=== PATIENT | female | born 1960 | race Caucasian/White ===

== ENCOUNTER 2023-07-03 13:04 | Observation (INO) ==
[2023-07-03 14:42] LABS: ABS Basophils 0.1 10^3/uL (0.0-0.1); ABS Lymphocytes 2.9 10^3/uL (1.0-4.8); ABS Monocytes 0.4 10^3/uL (0.0-0.9); ABS Neutrophils 6.1 10^3/uL (1.5-7.6); ABS Nucleated RBC 0.02 10^3/ul; Eosinophil % 0.1 %; Hematocrit 46.4 % (35-45); Hemoglobin 16.3 g/dL (11.5-14.3); Lymphocyte % 30.2 %; Mean Corpuscular Hemoglobin 36.2 pg (27-33); Mean Corpuscular Hgb Conc 35.1 g/dL (31-36); Mean Corpuscular Volume 103.1 fL (80-97); Mean Platelet Volume 7.5 fL (7.5-11.2); Nucleated Red Blood Cells % 0.3 %/100WBC (0.0-0.8); Platelet Count 286 10^3/uL (150-450); Red Cell Distribution Width 14.1 % (12-17); White Blood Count 9.5 10^3/uL (3.8-11.8)
[2023-07-03 14:43] LABS: INR 1.18 (0.83-1.13)
[2023-07-03 15:08] LABS: Albumin 4.5 g/dL (3.2-5.2); Albumin/Globulin Ratio 1.2 (1-3); Calcium 9.2 mg/dL (8.6-10.3); Creatinine, Serum 0.78 mg/dL (0.51-0.95); Globulin 3.8 g/dL (2-4); Potassium 4.2 mmol/L (3.5-5.0); Total Bilirubin 1.1 mg/dL (0.2-1.0); Total Protein 8.3 g/dL (6.4-8.9); eGFR CKD-EPI 85.3 (>60)
[2023-07-03] MEDS ORDERED: Lactated Ringers 1000 ml BAG 1,000 ML IV ONE ×2 (16:36→18:44)
[2023-07-03] MEDS ORDERED: LORazepam 2 mg VIAL 1 ml IV PUSH ONE ×2 (17:32→20:03)
[2023-07-03] MEDS ORDERED: Lorazepam PYXIS KEY PRN ×2 (17:32→20:03)
[2023-07-03] MEDS ORDERED: Iohexol 350 (CONTRAST) 500 ML MDV IV ONE (17:50)
[2023-07-03 18:08] LABS: Urine Appearance Cloudy; Urine Bilirubin Negative (Negative); Urine Blood 3+ (Negative); Urine Color Yellow; Urine Glucose Negative (Negative); Urine Ketones 2+ (Negative); Urine Nitrite Negative (Negative); Urine Protein 2+(100 mg/dL) (Negative); Urine Specific Gravity 1.018 (1.002-1.030); Urine Urobilinogen Negative (Negative)
[2023-07-03 18:30] LABS: Urine Bacteria Absent (Absent); Urine Red Blood Cell 3+(>10/hpf) (Absent); Urine Squamous Epithelial Cell Present (Absent); Urine White Blood Cell Trace(0-5/hpf) (Absent)
[2023-07-03 20:10] LABS: C Reactive Protein 5.39 mg/L (<8.01)
[2023-07-03] MEDS ORDERED: Morphine 2 MG/ML SYRINGE IV PRN (21:32)
[2023-07-03] MEDS ORDERED: Enoxaparin 40 MG/0.4 ML SYR SUBCUT SCH (22:00)
[2023-07-03 22:46] LABS: Direct Bilirubin 0.4 mg/dL (0.03-0.18); Indirect Bilirubin 0.7 mg/dL (0.3-1.0); Magnesium 1.9 mg/dL (1.9-2.7)
[2023-07-03] MEDS ORDERED: Thiamine 100 MG/ML 2 ml VIAL (200 mg) IM ONE (22:55)
[2023-07-03] MEDS ORDERED: LORazepam 2 mg VIAL 1 ml IV PUSH SCH (23:00)
[2023-07-03] MEDS ORDERED: Lactated Ringers 1000 ml BAG 1,000 ML IV SCH (23:00)
[2023-07-03] MEDS: Multivitamins/Minerals TAB PO SCH (23:24)
[2023-07-04 06:06] LABS: ABS Basophils 0.1 10^3/uL (0.0-0.1); ABS Lymphocytes 2.5 10^3/uL (1.0-4.8); ABS Monocytes 0.6 10^3/uL (0.0-0.9); ABS Neutrophils 4.7 10^3/uL (1.5-7.6); Eosinophil % 0.6 %; Hematocrit 38.2 % (35-45); Hemoglobin 13.3 g/dL (11.5-14.3); Lymphocyte % 31.9 %; Mean Corpuscular Hemoglobin 35.9 pg (27-33); Mean Corpuscular Hgb Conc 34.7 g/dL (31-36); Mean Corpuscular Volume 103.6 fL (80-97); Mean Platelet Volume 7.4 fL (7.5-11.2); Nucleated Red Blood Cells % 0.1 %/100WBC (0.0-0.8); Platelet Count 204 10^3/uL (150-450); Red Blood Count 3.69 10^6/uL (3.63-4.92); Red Cell Distribution Width 14.2 % (12-17); White Blood Count 7.9 10^3/uL (3.8-11.8)
[2023-07-04 06:27] LABS: Calcium 8.6 mg/dL (8.6-10.3); Creatinine, Serum 0.62 mg/dL (0.51-0.95); Magnesium 1.8 mg/dL (1.9-2.7); Potassium 3.5 mmol/L (3.5-5.0)
[2023-07-04] MEDS: Multivitamins/Minerals TAB PO SCH (08:09)
[2023-07-04] MEDS ORDERED: Magnesium Sulfate 2 gm BAG 2 GM/50 ML BAG IVPB ONE (09:54)
[2023-07-04 14:54] VITALS: BP 165/96
== END 2023-07-04 16:30 | disposition home or self-care (01) ==
LOC: EDHOLD 13:04 → ED 13:04 → SUATTDRO 21:29 → SSU 07-04 00:33
PROVIDERS: ADMIT Internal Medicine; ATTEND Internal Medicine